=== PATIENT | female | born 1950 | race Two or more races ===

== ENCOUNTER → 2024-08-08 | Outpatient (CLI) | payer OTHER ==
[~2024-08-08] VITALS: Ht 180.3 cm; Wt 82.6 kg
[2024-08-08] MEDS: REGADENOSON 0.4 MG/5 ML SYRG IV ONE ×2 (13:02→13:38)
--- NOTE | 2024-08-09 10:34 | DVHSR ---
APPROVED REPORT Exam: Nuclear Stress Test Indication: COPD BMI: 0 Medical History Medical History: COPD Allergies: EPI Stress Test Details Stress Test: Pharmacologic stress testing performed using 0.4 mg of regadenoson per 5 mL given IV ov er 10 seconds. HR Resting HR: 96 bpmMax Heart Rate (APMHR): 149.341870 bpm Max HR Achieved: 127 bpmTarget HR (85% APMHR): 126.104528 bpm % of APMHR: 85.23 Recovery HR: 111 bpm BP Resting BP: 144/78 mmHg Recovery BP: 168/78 mmHg ECG Resting ECG: Sinus Rhythm Clinical Reason for Termination: Completed protocol Nurse Comments Recieved pt. from [employer]. A/Ox4 on RA. Connected to cardiac surgeon, VS stable. PIV flushes well. Reviewed POC. Pt. verbalized understanding of procedure including risks and side ef fects, agrees for stress testing. Lexiscan stress test performed per protocol. [employer] tech administered Cardiolite. Pt. tolerated well . Pt. stable, no change on exam. VS returned to baseline. Transferred to [employer] via wheelchair w/ te ch. Stress ECG Conclusion no severe stress induced ischemia noted normal lvef 56% NM EXAM: Myocardial Perfusion REST/STRESS Imaging Protocol: Rest Tc-99m/Stress Tc-99m 1 day Resting Data Rest SPECT myocardial perfusion imaging was performed in supine position 60 minutes following the int ravenous injection of 11.2 mCi of Tc-99m Sestamibi. Time of rest injection: 1230 Time of rest imagin Administration Route: IV Administration Site: Right Hand Pharmacologic Stress Pharmacologic stress test was performed by injecting Regadenoson 0.4 mg IV push followed by the intra venous injection of 32 mCi of Tc-99m Sestamibi. Time of stress injection: 1340 Time of stress imagin Administration Route: IV Administration Site: Right Hand The images were gated to evaluate regional wall motion and calculate left ventricular ejection fracti on. Stress only was performed in the Supine position. Nuclear Conclusion Clinical Findings: negative for ischemia Left Ventricular Function: normal no severe stress induced ischemia noted normal lvef 56%
== END | disposition home or self-care (01) ==
LOC: XYW 12:42
PROVIDERS: ATTEND Internal Medicine
DX: J44.9 Chronic obstructive pulmonary disease, unspecified (principal)
CPT/HCPCS: 78452; 93017; A9500; J2785